=== PATIENT | male | born 1995 ===

== ENCOUNTER → 2022-11-30 | Outpatient (CLI) | payer SELFPAY ==
[2022-12-02 01:11] LABS: CHLAMYDIA TRACHOMATIS, NAA Negative (Negative)
== END | disposition home or self-care (01) ==
LOC: LAB SHORT 17:47
PROVIDERS: Physician Assistant
DX: Z11.3 Encounter for screening for infections with a predominantly sexual mode of transmission (principal)
CPT/HCPCS: 87491; 87591